=== PATIENT | female | born 1945 | race Caucasian/White ===

== ENCOUNTER 2023-04-19 10:56 | Outpatient (CLI) | payer MEDICARE, BC | END 2023-04-19 10:57 | disposition home or self-care (01) | LOC: CSHRAD 10:56 | PROVIDERS: ATTEND Student in an Organized Health Care Education/Training Program | DX: M79.645 Pain in left finger(s) (principal); M25.742 Osteophyte, left hand ==

== ENCOUNTER 2023-09-02 10:57 | Outpatient (CLI) | payer MEDICARE | END 2023-09-02 10:58 | disposition home or self-care (01) | LOC: CSHULT 10:57 | PROVIDERS: ATTEND Otolaryngology | DX: R22.1 Localized swelling, mass and lump, neck (principal) | CPT/HCPCS: 76536 ==